=== PATIENT | female | born 1950 | race Caucasian/White ===

== ENCOUNTER → 2016-12-01 | Outpatient (CLI) | payer BC, MEDICARE ==
[~2016-12-01] MED LIST: CLARITIN 1010 MG/TAB PO; CYMBALTA 30MG30 MG PO; ENBREL50 MG/ML SC; FOLIC ACID 11 MG/TA1 PO; LOPRESSOR 225 MG/TAB PO; METHOTREXA2.5 MG/TAB PO; MIRAPEX0.5 MG PO; MOBIC15 MG PO; PEPCID 20MG TAB20 MG PO; PERCOCET 325 MG1 TA2 PO; PREMPRO 0.625/21 TAB PO
== END ==
LOC: BHSO 11:02
DX: F06.32 Mood disorder due to known physiological condition with major depressive-like episode (principal)

== ENCOUNTER → 2017-02-26 | Outpatient (CLI) | payer BC, MEDICARE | LOC: BHSO 09:19 | DX: F33.42 Major depressive disorder, recurrent, in full remission (principal) ==

== ENCOUNTER → 2017-05-28 | Outpatient (CLI) | payer BC, MEDICARE | LOC: BHSO 09:21 | DX: F90.0 Attention-deficit hyperactivity disorder, predominantly inattentive type (principal) ==

== ENCOUNTER → 2017-08-27 | Outpatient (CLI) | payer BC, MEDICARE | LOC: BHSO 09:11 | DX: F33.42 Major depressive disorder, recurrent, in full remission (principal) ==

== ENCOUNTER → 2018-02-27 | Outpatient (CLI) | payer BC | LOC: BHSO 14:43 | DX: F33.42 Major depressive disorder, recurrent, in full remission (principal) | CPT/HCPCS: G0463 ==

== ENCOUNTER → 2018-12-16 | Outpatient (CLI) | payer BC | LOC: COL.RAD 15:35 | DX: S09.90XA Unspecified injury of head, initial encounter (principal); W19.XXXA Unspecified fall, initial encounter ==

== ENCOUNTER → 2019-01-07 | Outpatient (CLI) | payer BC | LOC: COL.VAS 09:45 → COL.RAD 13:15 | DX: I65.21 Occlusion and stenosis of right carotid artery (principal); I08.0 Rheumatic disorders of both mitral and aortic valves; R55 Syncope and collapse ==

== ENCOUNTER → 2019-07-11 | Outpatient (CLI) | payer BC | LOC: MC.RAD 14:06 | DX: Z12.31 Encounter for screening mammogram for malignant neoplasm of breast (principal) ==